=== PATIENT | female | born 1975 | race Caucasian/White ===

== ENCOUNTER 2018-07-22 21:05 | Emergency (ER) | payer OTHER ==
[~2018-07-22] VITALS: Ht 170.2 cm; Wt 97.3 kg
[2018-07-22] MEDS ORDERED: METF-960 PO (21:36)
[2018-07-22] MEDS ORDERED: ACETAMINOPHEN 500 MG TABLET PO ONE (23:30)
[2018-07-22] MEDS ORDERED: IBUPROFEN 600 MG TABLET PO ONE (23:30)
[2018-07-22 23:39] LABS: INFLUENZA TYPE A POSITIVE FOR TYPE A (NEGATIVE); INFLUENZA TYPE B NEGATIVE FOR TYPE B (NEGATIVE)
[2018-07-22 23:58] VITALS: BP 129/81
== END 2018-07-23 00:02 | disposition home or self-care (01) ==
LOC: EMS 21:06
DX: J11.1 Influenza due to unidentified influenza virus with other respiratory manifestations (principal); E11.65 Type 2 diabetes mellitus with hyperglycemia; R03.0 Elevated blood-pressure reading, without diagnosis of hypertension; Z79.84 Long term (current) use of oral hypoglycemic drugs
CPT/HCPCS: 87804